=== PATIENT | male | born 1990 | race Caucasian/White ===

== ENCOUNTER 2017-12-16 13:01 | Emergency (ER) | payer SELFPAY ==
[2017-12-16 13:15] VITALS: BP 148/90; PULSE 57; RESP 16; TEMP 97.6; O2SAT 98
[2017-12-16] MEDS ORDERED: Sodium Chloride 0.9% 1,000 ML IV STA (13:48)
--- NOTE | 2017-12-16 13:50 | ED PDOC ---
HPI: Abdomen Time Seen by Provider: 12/16/17 13:49 Chief Complaint (Nursing): Abdominal Pain Chief Complaint (Provider): ABD PAIN History Per: Patient (27 Y/O MALE HERE WITH LOWER ABD PAIN NOTED SINCE LAST NIGHT CRAMPY THAT HAS IMPROVED TODAY. PATIENT STATES HE HAD SORE THROAT/URI YESTERDAY. NO VOMITING/DIARRHEA. DENIES ANY DYSURIA.) Past Medical History Reviewed: Historical Data, Nursing Documentation, Vital Signs Vital Signs: Last Vital Signs Temp 97.6 F 12/16/17 13:13 Pulse 57 L 12/16/17 13:13 Resp 16 12/16/17 13:13 BP 148/90 12/16/17 13:13 Pulse Ox 98 12/16/17 13:13 - Family History Family History: States: Unknown Family Hx - Home Medications Home Medications: Ambulatory Orders Medication Instructions Recorded Acetaminophen with Codeine 1 tab PO Q4 PRN #10 tab 08/09/14 [Tylenol with Codeine No. 3 300 mg-30 mg] Cephalexin [Keflex] 500 mg PO BID #14 cap 08/09/14 Famotidine [Pepcid] 20 mg PO BID #10 tab 12/16/17 - Allergies Allergies/Adverse Reactions: Allergies Allergy/AdvReac Type Severity Reaction Status Date / Time No Known Allergies Allergy Verified 09/03/15 04:05 Review of Systems ROS Statement: Except As Marked, All Systems Reviewed And Found Negative Physical Exam - Reviewed Nursing Documentation Reviewed: Yes Vital Signs Reviewed: Yes - Physical Exam Appears: Positive for: Well, Non-toxic, No Acute Distress Head Exam: Positive for: ATRAUMATIC, NORMAL INSPECTION, NORMOCEPHALIC Skin: Positive for: Normal Color, Warm, DRY Eye Exam: Positive for: EOMI, Normal appearance, PERRL ENT: Positive for: Normal ENT Inspection Neck: Positive for: Normal, Painless ROM Cardiovascular/Chest: Positive for: Regular Rate, Rhythm Respiratory: Positive for: CNT, Normal Breath Sounds Gastrointestinal/Abdominal: Positive for: Normal Exam, Soft Back: Positive for: Normal Inspection Extremity: Positive for: Normal ROM Neurologic/Psych: Positive for: Alert, Oriented - Laboratory Results Result Diagrams: 12/16/17 14:50 12/16/17 14:50 - ECG O2 Sat by Pulse Oximetry: 98 - Progress ED Course And Treament: rapid strep negative NS 1 liter wide open pepcid 20mg iv bentyl 20 mg x 1 dose Patient states he feels improved. Disposition - Clinical Impression Clinical Impression: Abdominal pain, Pharyngitis - Patient ED Disposition Is Patient to be Admitted: No - Disposition Disposition: Routine/Home Disposition Time: 15:49 Condition: FAIR Prescriptions: Famotidine [Pepcid] 20 mg PO BID #10 tab Instructions: Acute Abdomen (Belly Pain), Adult (DC), Viral Pharyngitis (DC) Forms: [facility] ED School/Work Excuse - POA Present On Arrival: None
[2017-12-16 15:00] LABS: BASO # 0.1 K/uL (0.0-0.2); BASO % 0.9 % (0.0-2.0); EOS # 0.3 K/uL (0.0-0.7); EOS % 3.6 % (0.0-4.0); HEMOGLOBIN 14.8 g/dL (12.0-18.0); LYMPH # 2.6 K/uL (1.0-4.3); LYMPH % 33.5 % (20.0-40.0); MEAN CELL VOLUME 82.7 fl (80.0-94.0); MEAN CORPUSCULAR HEMOGLOBIN 27.8 pg (27.0-31.0); MEAN CORPUSCULAR HGB CONC 33.6 g/dL (33.0-37.0); MEAN PLATELET VOLUME 8.2 fl (7.2-11.7); MONO # 0.5 K/uL (0.0-0.8); MONO % 6.3 % (0.0-10.0); NEUT # 4.3 K/uL (1.8-7.0); NEUT % 55.7 % (50.0-75.0); NRBC % 0.1 % (0.0-0.0); RBC 5.31 Mil/uL (4.40-5.90); RED CELL DISTRIBUTION WIDTH 14.3 % (11.5-14.5); WHITE BLOOD COUNT 7.7 K/uL (4.8-10.8)
[2017-12-16 15:06] LABS: URINE BILIRUBIN NEGATIVE (NEGATIVE); URINE BLOOD NEGATIVE (NEGATIVE); URINE CLARITY CLEAR (Clear); URINE COLOR YELLOW (YELLOW); URINE GLUCOSE (UA) NEG (Normal); URINE LEUKOCYTE ESTERASE NEG Leu/uL (Negative); URINE PROTEIN NEGATIVE (NEGATIVE); URINE UROBILINOGEN 0.2-1.0 mg/dL (0.2-1.0)
[2017-12-16 15:12] LABS: ALBUMIN 4.2 g/dL (3.5-5.0); ALT/SGPT 62 U/L (21-72); AST/SGOT 48 U/L (17-59); BLOOD UREA NITROGEN 15 mg/dl (9-20); GFR NON-AFRICAN AMERICAN > 60; LIPASE 35 U/L (23-300)
== END 2017-12-16 15:57 | disposition home or self-care (01) ==
LOC: H.ER 13:01
DX: R10.9 Unspecified abdominal pain (principal); J02.9 Acute pharyngitis, unspecified
CPT/HCPCS: 80053; 81003; 83690; 85025; 87070; 87430; 96374; 99282; J7030